=== PATIENT | male | born 1945 | race Caucasian/White ===

== ENCOUNTER 2020-03-04 14:04 | Outpatient (CLI) | payer BC, MEDICARE, SELFPAY ==
--- NOTE | ~2020-03-04 | CT_ITS ---
EXAMINATION: CT chest wo con DATE: 03/04/2020 14:35 INDICATION: Six-month follow-up TECHNIQUE: Computed tomography (CT) of the chest was performed without intravenous contrast. The dose -length product was 249.39 mGy-cm. Automated exposure control and iterative reconstruction technique were employed. COMPARISON: CT dated 07/29/2019 FINDINGS: Chronic elevation of the left diaphragm. No thoracic lymphadenopathy. No significant pleura l or pericardial effusion. There is left lower lobe atelectasis. The pleural-based densities in the l eft apical region and the right upper lobe are not visualized, likely resolution of atelectasis. Calc ified granuloma right middle lobe. There are scattered calcified granulomas in the lung parenchyma an d spleen. IMPRESSION: 1. Chronic elevation of the left hemidiaphragm, suspicious for phrenic nerve paralysis. 2: Left lower lobe atelectasis. Reviewed, dictated and finalized at location A. IMPRESSION: 1. Chronic elevation of the left hemidiaphragm, suspicious for phrenic nerve pa ralysis. 2: Left lower lobe atelectasis.
== END 2020-03-04 14:05 | disposition home or self-care (01) ==
PROVIDERS: PCP Family Medicine; Visit Provider Family Medicine
DX: R91.8 Other nonspecific abnormal finding of lung field (principal); J98.11 Atelectasis
CPT/HCPCS: 71250

== ENCOUNTER 2021-05-26 12:57 | Emergency (ER) | payer BC, MEDICARE, SELFPAY ==
--- NOTE | ~2021-05-26 | XR_ITS ---
XR chest 1V portable 05/26/2021 13:52 Indication: Dizziness Procedure: AP portable chest Comparison: Comparison to multiple prior studies sequentially, with oldest reviewed study dated 06/2015. Findings: Chronic elevation of the left diaphragm. Left basilar airspace disease. Moderate gastric di stention. No significant pleural effusion. No edema or pneumothorax. Impression: 1: Left basilar airspace disease may represent atelectasis or pneumonia. 2: Chronic elevation of the left diaphragm, suspicious for phrenic nerve paralysis. Reviewed, dictated and finalized at location A. Impression: 1: Left basilar airspace disease may represent atelectasis or pneumonia. 2: Chronic elevation of the left diaphragm, suspicious for phrenic nerve paral ysis.
[2021-05-26 13:04] VITALS: BP 158/73; PULSE 66; RESP 17; TEMP 36.2; O2SAT 100
--- NOTE | 2021-05-26 13:43 | ECG_ITS ---
Measurements Intervals [place] Rate: 64 P: 56 ME: 157 QRS: 47 QRSD: 94 T: 42 QT: 396 QTc: 411 Interpretive Statements SINUS RHYTHM INCOMPLETE RIGHT BUNDLE BRANCH BLOCK BASELINE ARTIFACT- II, III, AVR, AVF, V3-V6 BORDERLINE ECG Electronically Signed On 05-26-2021 15:37:10 CDT by Akash Yang D.O.
[2021-05-26 13:57] LABS: Basophils Percent Auto 0.6 % (0.2-1.2); Eosinophils Absolute Auto 0.2 K/mm3 (0-0.3); Eosinophils Percent Auto 4.1 % (0-4.4); Hematocrit 44.8 % (42.0-52.0); Hemoglobin 15.4 g/dL (14.0-18.0); Immature Granulocyte Absolute 0.01 K/mm3 (0.00-0.031); Immature Granulocyte Percent A 0.2 % (0-0.5); Lymphocytes Absolute Auto 1.31 K/mm3 (0.9-3.2); Lymphocytes Percent Auto 24.5 % (18.3-44.2); Mean Corpuscular HGB Conc 34.4 g/dl (32-36); Mean Corpuscular Hemoglobin 30.1 pg (26-34); Mean Corpuscular Volume 87.7 fl (80-100); Mean Platelet Volume 9.8 fl (7.4-10.4); Monocytes Absolute Auto 0.4 K/mm3 (0.1-0.6); Monocytes Percent Auto 7.7 % (2.6-8.5); Neutrophils Absolute Auto 3.4 K/mm3 (1.3-6.7); Neutrophils Percent Auto 62.9 % (45.5-73.1); Platelet Count Result 167 k/mm3 (150-375); Red Blood Count 5.11 M/mm3 (4.6-6.20); Red Cell Distribution Width 12.1 % (11.5-14.5); White Blood Count 5.4 K/mm3 (4.5-10.0)
[2021-05-26 13:59] VITALS: BP 134/78; PULSE 68; RESP 12; TEMP 37.1; O2SAT 99
[2021-05-26 14:05] LABS: Glucose Point of Care 91 mg/dl (65-105)
[2021-05-26] MEDS: MECLIZINE HCL 25 MG TABLET PO (14:05)
[2021-05-26] MEDS: SODIUM CHLORIDE 0.9% IV 1,000 ML 999 ML IV CONT (14:05)
[2021-05-26 14:08] LABS: Anion Gap 11 mmol/L (8-16); Blood Urea Nitrogen 17 mg/dL (9-20); Calcium 9.7 mg/dL (8.4-10.2); Carbon Dioxide 23 mmol/L (22-30); Chloride 104 mmol/L (98-107); Estimated CRCL calculation 65 ml/min; Estimated Glomerular Filt Rate > 60; Glucose 105 mg/dL (65-110); Potassium 4.1 mmol/L (3.4-5.0); Sodium 138 mmol/L (137-145)
[2021-05-26 15:00] VITALS: BP 140/77; PULSE 57; RESP 14; O2SAT 99
--- NOTE | 2021-05-26 15:19 | ED.DIZZY ---
HPI - Dizziness General Chief Complaint: Dizziness Stated Complaint: feel off balance Time Seen by Provider: 05/26/21 13:16 History of Present Illness HPI Narrative: Patient is a 75-year-old male who presents the ER with dizziness. Reports he woke up with this dizziness yesterday and had improved today. Then he was at lunch and it worsened. Makes him feel off balance. This happens to him about once a year. No previous history of CVA. Denies nausea/vomiting/sweats. No upper or lower extremity weakness. No numbness or tingling. No additional concerns. Has not tried any medications. Symptoms are better if he sits still. Related Data Allergies Allergy/AdvReac Type Severity Reaction Status Date / Time Penicillins Allergy Unknown Unknown Verified 05/26/21 13:07 Review of Systems Review of Systems: All systems reviewed & are unremarkable except as noted in HPI and below Constitutional: Constitutional: Denies chills, Denies fever(s) and Denies weakness ENT: Reports dizziness, Denies nasal congestion and Denies sore throat Gastrointestinal: Gastrointestinal: Denies abdominal pain, Denies nausea and Denies vomiting Neurologic: Reports dizziness, Denies syncope, Denies headache(s), Denies focal weakness and Denies numbness PMFSH Past Medical History Medical History Erectile dysfunction History of malignant neoplasm of tonsil History of radiation therapy History of throat cancer Right anterior shoulder pain Family History Family History Father Family history of coronary artery disease Mother Family history of coronary artery disease Sibling Family history of coronary artery disease Other Family history of cardiovascular disease Family history of malignant neoplasm Hypertension Social History Social History (Updated 10/26/20 @ 14:55 by Vanesa Smith) Smoking status: Never smoker Alcohol intake: never Substance use: never Substance use type: does not use Gender identity (if verbalized by the patient): Male Exam Narrative: GENERAL: Well-appearing, well-nourished, and in no acute distress. HEAD: Normocephalic, atraumatic. EYES: PERRL and EOMI. CHEST: Clear to auscultation. No respiratory distress. HEART: Regular rate and rhythm. Normal peripheral pulses. ABDOMEN: Soft, nontender, nondistended. EXTREMITIES: Normal range of motion. No edema. SKIN: Warm, dry, no rash. NEURO: No focal deficits. Cranial nerves II through XII intact. Ambulates without any issues. No upper or lower extremity drift. Normal finger-nose testing. Alert and oriented x3. PSYCH: Normal mood and affect. Course Course Emergency Course: Patient feels better with meclizine and fluids. Discharge home with supportive care. Vital Signs Vital signs: Vital Signs Temperature 97.2 F L 05/26/21 13:04 Pulse Rate 66 05/26/21 13:04 Respiratory Rate 17 05/26/21 13:04 Blood Pressure 158/73 H 05/26/21 13:04 Pulse Oximetry 100 05/26/21 13:04 Temperature 98.8 F 05/26/21 13:59 Pulse Rate 68 05/26/21 13:59 Respiratory Rate 12 05/26/21 13:59 Blood Pressure 134/78 05/26/21 13:59 Pulse Oximetry 99 05/26/21 13:59 MDM - Dizziness Lab Data Result diagrams: 05/26/21 13:51 05/26/21 13:51 Labs: Lab Results 05/26/21 05/26/21 05/26/21 Range/Units 13:51 13:51 14:03 WBC 5.4 (4.5-10.0) K/mm3 RBC 5.11 (4.6-6.20) M/mm3 Hgb 15.4 (14.0-18.0) g/dL Hct 44.8 (42.0-52.0) % MCV 87.7 (80-100) fl MCH 30.1 (26-34) pg MCHC 34.4 (32-36) g/dl RDW 12.1 (11.5-14.5) % Plt Count 167 (150-375) k/mm3 MPV 9.8 (7.4-10.4) fl Immature Gran % (Auto) 0.2 (0-0.5) % Neut % (Auto) 62.9 (45.5-73.1) % Lymph % (Auto) 24.5 (18.3-44.2) % [place] % (Auto) 7.7 (2.6-8.5) % Eos % (Auto) 4.1 (0-4.4) % Baso % (Auto) 0.6
[2021-05-26 16:00] VITALS: BP 151/74; PULSE 61; RESP 12; O2SAT 99
== END 2021-05-26 16:02 | disposition home or self-care (01) ==
PROVIDERS: Emergency Provider Emergency Medicine; PCP Family Medicine
DX: R42 Dizziness and giddiness (principal); I45.10 Unspecified right bundle-branch block; R91.8 Other nonspecific abnormal finding of lung field; Z92.3 Personal history of irradiation; Z85.818 Personal history of malignant neoplasm of other sites of lip, oral cavity, and pharynx
CPT/HCPCS: 36415; 71045; 80048; 82948; 85025; 93005; 96360; 99284; A9270; J7030

== ENCOUNTER 2022-01-16 17:48 | Emergency (ER) | payer BC, MEDICARE, SELFPAY ==
[2022-01-16 17:50] VITALS: BP 141/87; PULSE 74; RESP 18; TEMP 36.2; O2SAT 100
[2022-01-16 18:11] LABS: Basophils Percent Auto 0.4 % (0.2-1.2); Eosinophils Absolute Auto 0.2 K/mm3 (0-0.3); Eosinophils Percent Auto 2.1 % (0-4.4); Hematocrit 54.3 % (42.0-52.0); Hemoglobin 18.1 g/dL (14.0-18.0); Immature Granulocyte Absolute 0.03 K/mm3 (0.00-0.031); Immature Granulocyte Percent A 0.4 % (0-0.5); Lymphocytes Absolute Auto 0.72 K/mm3 (0.9-3.2); Lymphocytes Percent Auto 9.9 % (18.3-44.2); Mean Corpuscular HGB Conc 33.3 g/dl (32-36); Mean Corpuscular Hemoglobin 30.3 pg (26-34); Mean Corpuscular Volume 90.8 fl (80-100); Mean Platelet Volume 9.4 fl (7.4-10.4); Monocytes Absolute Auto 0.7 K/mm3 (0.1-0.6); Monocytes Percent Auto 9.2 % (2.6-8.5); Neutrophils Absolute Auto 5.7 K/mm3 (1.3-6.7); Platelet Count Result 180 k/mm3 (150-375); Red Blood Count 5.98 M/mm3 (4.6-6.20); Red Cell Distribution Width 12.8 % (11.5-14.5); White Blood Count 7.3 K/mm3 (4.5-10.0)
[2022-01-16 18:22] LABS: Alanine Aminotransferase 31 U/L (4-50); Albumin Level 4.8 g/dL (3.5-5.1); Alkaline Phosphatase 126 U/L (38-126); Anion Gap 9 mmol/L (8-16); Aspartate Amino Transferase 42 U/L (17-59); Bilirubin,Total 0.9 mg/dL (0.2-1.3); Blood Urea Nitrogen 17 mg/dL (9-20); Calcium 8.7 mg/dL (8.4-10.2); Carbon Dioxide 20 mmol/L (22-30); Chloride 106 mmol/L (98-107); Estimated CRCL calculation 54 ml/min; Estimated Glomerular Filt Rate 59; Glucose 119 mg/dL (65-110); Lipase 233 U/L (23-300); Potassium 4.6 mmol/L (3.4-5.0); Sodium 135 mmol/L (137-145)
--- NOTE | 2022-01-16 18:26 | ED.NAVMDI ---
HPI - Nausea/Vomiting/Diarrhea General Chief complaint: Nausea/Vomiting/Diarrhea Stated complaint: Diarrhea, vomiting, nausea Time Seen by Provider: 01/16/22 18:05 Source: patient Mode of arrival: ambulatory Limitations: no limitations History of Present Illness HPI Narrative: 76-year-old male presents today with complaints of diarrhea that started Saturday night. Patient states at 1 point he was having diarrhea episodes every 10 minutes. Patient states it has slowed down today. Patient unable to eat food but able to keep down fluids. Patient states he was nauseated with the Ensure that he drank today. Patient denies abdominal pain, fever, chills, cough, sore throat, or sick contacts. Patient does endorse slight nausea at this point and body aches with sweats at times. Related Data Allergies Allergy/AdvReac Type Severity Reaction Status Date / Time Penicillins Allergy Unknown Unknown Verified 01/16/22 17:51 Review of Systems Review of Systems: CONSTITUTIONAL: Denies fever, chills, or sweats. EYES: Denies visual changes, redness, or discharge. ENT: Denies rhinorrhea, congestion, sore throat, or otalgia. CARDIOVASCULAR: Denies chest pain, palpitations, or edema. RESPIRATORY: Denies cough or dyspnea. GASTROINTESTINAL: Diarrhea. Denies abdominal pain, nausea, vomiting. GENITOURINARY: Denies dysuria or hematuria. SKIN: Denies rash or itching. MUSCULOSKELETAL: Denies back pain, joint pain, or myalgia. NEUROLOGIC: Denies headache, numbness, dizziness, or weakness. PSYCHIATRIC: Denies anxiety or depression. [facility] Past Medical History Medical History Erectile dysfunction History of malignant neoplasm of tonsil History of radiation therapy History of throat cancer Overweight Right anterior shoulder pain Family History Family History Father Family history of coronary artery disease Mother Family history of coronary artery disease Sibling Family history of coronary artery disease Other Family history of cardiovascular disease Family history of malignant neoplasm Hypertension Social History Social History Smoking status: Never smoker Second hand tobacco smoke exposure: No Alcohol intake: never Substance use: never Substance use type: does not use Gender identity (if verbalized by the patient): Male Sexual Orientation (if Verbalized by the Patient): Straight or Heterosexual Exam Const: General: cooperative, healthy appearing, no acute distress and well developed HENMT: Head: normal to inspection Ears: hearing grossly normal bilaterally General nose exam: Normal external nose present Mouth: Yes moist mucous membranes Eyes: General: appearance normal, both eyes and all related structures Chest: Chest palpation & inspection: normal inspection of the chest Resp: Effort & Inspection: normal respiratory effort and able to speak in complete sentences Auscultation: clear to auscultation bilaterally Cardio: Rate: regular rate Rhythm: regular rhythm GI: Inspection: normal to inspection GI Palp: No abdominal tenderness Auscultation: normal bowel sounds Skin: General skin exam: normal color Neuro: General: patient oriented x3 Extrem: General: normal to inspection Course Course Emergency Course: All results reviewed with patient. Patient feeling much improved with IV fluids and ketorolac. Plan discharge home. Push fluids. Son at bedside and aware of plan. All in agreement with plan of care and aware to return with any new or worsening symptoms. Vital Signs Vital signs: Vital Signs Temperature 36.2 C L 01/16/22 17:50 Pulse Rate 74 01/16/22 17:50 Respiratory Rate 18 01/16/22 17:50 Blood Pressure 141/87 H 01/16/22 17:50 Pulse Oximetry 100 01/16/22 17:50 Temperature 36.2 C L 01/16/22 17:50 Pulse Rate 70 03
[2022-01-16] MEDS: LACTATED RINGERS 1,000 ML 999 ML IV CONT (18:35)
[2022-01-16] MEDS: ONDANSETRON INJ 4 MG/2 ML VIAL IV PUSH (18:35)
[2022-01-16 19:05] LABS: Add Urine Microscopic? YES; Appearance Urine Cloudy (Clear); Bacteria Urine Trace /hpf; Bilirubin Urine Negative (Negative); Blood Urine Negative (Negative); Color Urine Amber (Yellow); Glucose Urine UA Negative (Negative); Ketones Urine Negative (Negative); Leukocyte Esterase Ur Negative LEU/UL (Negative); Mucus Urine Moderate /lpf; Nitrate Urine Negative (Negative); Protein Urine 1+ mg/dL (Negative); RBC Urine 0-2 /hpf (0-2); Specific Grav Ur 1.027 (1.001-1.035); Squamous Epithelial Cell Urine Rare /hpf (Few); Urobilinogen Urine Negative mg/dL (<2.0); WBC Urine 0-3 /hpf
[2022-01-16 19:24] VITALS: BP 155/94; PULSE 78; RESP 18; O2SAT 98
--- NOTE | 2022-01-16 19:27 | PC.NURSE ---
Assuming care of pt.
[2022-01-16] MEDS: KETOROLAC 15 MG/ML VIAL (*BKC) IV PUSH (19:37)
[2022-01-16] MEDS: ACETAMINOPHEN 325 MG TABLET 650 MG PO (20:31)
[2022-01-16 20:32] VITALS: BP 107/90; PULSE 70; RESP 18; O2SAT 100
== END 2022-01-16 20:34 | disposition home or self-care (01) ==
PROVIDERS: Emergency Medicine; Emergency Provider Nurse Practitioner Family; PCP Family Medicine
DX: K52.9 Noninfective gastroenteritis and colitis, unspecified (principal); Z85.818 Personal history of malignant neoplasm of other sites of lip, oral cavity, and pharynx; Z92.3 Personal history of irradiation; E66.3 Overweight; Z68.26 Body mass index [BMI] 26.0-26.9, adult
CPT/HCPCS: 36415; 80053; 81001; 83690; 85025; 96361; 96374; 96375; 99284; A9270; J1885; J2405; J7120

== ENCOUNTER 2022-11-02 11:10 | Outpatient (CLI) | payer MEDICARE, BC, SELFPAY ==
--- NOTE | ~2022-11-02 | XR_ITS ---
XR ribs BI 3V w CXR 2V DATE: 11/02/2022 11:59 INDICATION: Fall. Rib injury, pain TECHNIQUE: PA and lateral views. 3 views of the right ribs. 3 views of the left ribs. COMPARISON: 05/26/2021 AP chest FINDINGS: There is chronic moderate elevation left leaf of the diaphragm. Heart size is within normal range. No hilar or mediastinal enlargement. Azygos lobe, normal variant. No pulmonary infiltrate or consolidation, pleural effusion or pulmonary vascular congestion or pneumothorax is detected. Osteopenia. No recent left rib fracture is detected. IMPRESSION: No recent rib fractures detected Chronic moderate elevation left diaphragm No active cardiopulmonary disease Reviewed, dictated and finalized at location B. STITCH COAT JOINER
--- NOTE | ~2022-11-02 | XR_ITS ---
XR shoulder LT min 2V DATE: 11/02/2022 11:59 INDICATION: Fall. Left shoulder injury, pain TECHNIQUE: 4 views COMPARISON: None FINDINGS: There is calcification at the acromioclavicular joint. No fracture or dislocation, perioste al reaction or bone destruction. No significant abnormal left shoulder calcification is noted. IMPRESSION: No significant abnormality Reviewed, dictated and finalized at location B. SELOR SUPERVISOR IMPRESSION: No significant abnormality
== END 2022-11-02 11:11 | disposition home or self-care (01) ==
PROVIDERS: PCP Family Medicine; Visit Provider Physician Assistant
DX: M25.512 Pain in left shoulder (principal); R07.81 Pleurodynia; Z91.81 History of falling
CPT/HCPCS: 71046; 71110; 73030

== ENCOUNTER → 2023-08-02 08:19 | Outpatient (CLI) | payer BC, MEDICARE, SELFPAY ==
--- NOTE | ~2023-08-02 | XR_ITS ---
XR chest 2V DATE: 08/02/2023 08:34 INDICATION: Cough TECHNIQUE: 2 views COMPARISON: None FINDINGS: There is prominent gaseous distention of the stomach and chronic elevation of the left diap hragm. Heart size is normal. No hilar or mediastinal enlargement. Azygos lobe, normal variant. No pulmonary infiltrate or consolidation, pleural effusion or pulmonary vascular congestion or pneumothorax. IMPRESSION: No active cardiopulmonary disease or significant change since 11/02/2022 Reviewed, dictated and finalized at location B. IMPRESSION: No active cardiopulmonary disease or significant change since 023
== END ==
PROVIDERS: PCP Physician Assistant; Visit Provider Physician Assistant
DX: R05.9 Cough, unspecified (principal)
CPT/HCPCS: 71046

== ENCOUNTER 2023-12-12 09:20 | Outpatient (CLI) | payer BC, MEDICARE, SELFPAY ==
--- NOTE | ~2023-12-12 | US_ITS ---
EXAMINATION: US carotid duplex BI DATE: 12/12/2023 09:45 INDICATION: Radiation to head and neck region. Throat cancer. TECHNIQUE: Grayscale, color Doppler, and pulsed Doppler images of the cervical carotid arteries were obtained. The degree of vessel stenosis is placed in one of the following categories: normal, <50%, 5 0-69%, >=70% but less than near-occlusion, near-occlusion, or total occlusion. Note that percent sten osis relative to normal distal artery lumen diameter is indirectly measured from velocity measurement s as described by Blu, et al. Radiology 2003; 229:340-346. COMPARISON: Ultrasound 11/27/2016 FINDINGS: RIGHT: The right common carotid artery (CCA) peak systolic velocity (PSV) is 83 cm/s. The right internal car otid artery (ICA) PSV is 95 cm/s. The right ICA end-diastolic velocity (EDV) is 30 cm/s. The right IC A/CCA PSV ratio is 1.1. Grayscale and color Doppler images yield an estimate of <50% diameter reducti on from plaque in the ICA. There is antegrade flow in the right vertebral artery. LEFT: The left CCA PSV is 116 cm/s. The left ICA PSV is 127 cm/s. The left ICA EDV is 46 cm/s. The left ICA /CCA PSV ratio is 1.1. Grayscale and color Doppler images yield an estimate of <50% diameter reductio n from plaque in the ICA. There is antegrade flow in the left vertebral artery. IMPRESSION: 1. <50% stenosis in the right internal carotid artery. 2. <50% stenosis in the left internal carotid artery. Reviewed, dictated and finalized at location A. RANCE SENIOR MANAGER
== END 2023-12-12 09:21 | disposition home or self-care (01) ==
LOC: ANHIMG 09:22
PROVIDERS: PCP Family Medicine
DX: I67.89 Other cerebrovascular disease (principal); Z92.3 Personal history of irradiation; I65.23 Occlusion and stenosis of bilateral carotid arteries
CPT/HCPCS: 93880

== ENCOUNTER 2024-05-15 10:07 | Outpatient (CLI) | payer BC, MEDICARE, SELFPAY ==
--- NOTE | 2024-05-26 16:08 | WPDHOLTEREM ---
Holter/Event Monitor Holter/Event Monitor Date of procedure: 05/15/24 Holter/Event Procedure: 48 Hr Holter Monitor Indications: Palpitations Conclusion: 1. 48 hour holter monitor on 05/15/24. 2. Predominant rhythm is sinus rhythm. HR range 51-146 bpm; average HR 72 bpm. 3. There are 5,011 premature supraventricular complexes, 117 supraventricular couplets, 96 supraventricular bigeminy and 3 supraventricular trigeminy. There are 5 episodes of atrial tachycardia, fastest at 145 bpm and longest lasting 4 beats. 4. There are 1,405 premature ventricular complexes, 3 ventricular couplets, 2 ventricular triplets. No ventricular tachycardia. 5. No sinoatrial or atrioventricular blocks. No significant pauses greater than 2 seconds. 6. No symptoms available for correlation.
== END 2024-05-15 10:08 | disposition home or self-care (01) ==
LOC: ANHCARD 10:08
PROVIDERS: PCP Family Medicine; Visit Provider Physician Assistant
DX: R00.2 Palpitations (principal); R07.9 Chest pain, unspecified
CPT/HCPCS: 93225; 93226

== ENCOUNTER 2024-05-25 07:35 | Outpatient (CLI) | payer BC, MEDICARE, SELFPAY | END 2024-05-25 07:36 | disposition home or self-care (01) | LOC: ANHAUDIO 07:37 | PROVIDERS: PCP Family Medicine; Visit Provider Physician Assistant | DX: H90.3 Sensorineural hearing loss, bilateral (principal); H93.13 Tinnitus, bilateral; H61.23 Impacted cerumen, bilateral | CPT/HCPCS: 92557; 92567 ==

== ENCOUNTER 2024-06-15 12:25 | Emergency (ER) | payer BC, MEDICARE, SELFPAY ==
--- NOTE | ~2024-06-15 | CT_ITS ---
EXAMINATION: CT abdomen pelvis w con DATE: 06/15/2024 14:51 INDICATION: Right lower abdominal pain TECHNIQUE: Computed tomography (CT) of the abdomen and pelvis was performed with 100 mL Omnipaque-350 intravenous contrast. Automated exposure control and iterative reconstruction technique were employe d. The dose-length product was 488.44 mGy-cm. COMPARISON: None FINDINGS: Basilar compressive atelectasis along the elevated left hemidiaphragm. Additional mild discoid atelec tasis in the left lower lobe. Small calcified nodule at the lingula and calcified splenic nodule cons istent with old granulomatous disease. Heart size is normal. Atherosclerotic coronary artery calcific ation. No pericardial or pleural effusion. Cholecystectomy clips at the gallbladder fossa. Liver, braden creas and bilateral adrenal glands are normal. There are regions of cortical scarring in the right ki dney. Small bilateral nonenhancing renal cysts the largest on the left measuring 8 mm in maximal diam eter. Gas and fluid scattered throughout nondilated loops of small bowel which could be seen with ent eritis. Normal appendix. Moderate sigmoid diverticulosis without no adjacent inflammatory change to s uggest diverticulitis. Bladder is normal. Prostatomegaly measuring 5.3 x 4.0 cm. Small fat-containing left inguinal hernia. No free intraperitoneal gas or fluid. No pathologically enlarged abdominal or pelvic lymphadenopathy. Severe lumbar spondylosis. IMPRESSION: 1. Resting fluid scattered throughout nonobstructed small bowel which is nonspecific but which could be seen with enteritis or ileus. No other acute intra-abdominal/pelvic process. Specifically the appe ndix is normal. Reviewed, dictated and finalized at location A. IMPRESSION: 1. Resting fluid scattered throughout nonobstructed small bowel which is nonspe cific but which could be seen with enteritis or ileus. No other acute intra-abd ominal/pelvic process. Specifically the appendix is normal.
[2024-06-15 12:45] VITALS: BP 117/93; PULSE 63; RESP 18; TEMP 36.4; O2SAT 97
--- NOTE | 2024-06-15 13:51 | ED.ABDPAIN ---
HPI - Abdominal Pain General Chief Complaint: Abdominal Pain <ES Huitron Last Filed: 06/15/24 13:56> Stated Complaint: abdominal pain <ES Huitron Last Filed: 06/15/24 13:56> Time Seen by Provider: 06/15/24 13:48 <ES Huitron Last Filed: 06/15/24 13:56> Focused HPI: Patient is a 78 y/o male, with PMH of throat CA, who presents to the ED with c/o R lower abdominal pain. Patient reports pain began yesterday and has been intermittent since then. Describes it as sharp stabbing electric type pains. Seems to be worse with movement. Has tried gas-x w/o relief. Has not taken anything else for pain. States pain feels similar to when he had gallbladder issues, though has since had a cholecystectomy. Denies N/V/D, constipation, dysuria, hematuria, fevers. GENERAL: Well-appearing, well-nourished, and in no acute distress. HEAD: Normocephalic, atraumatic. CHEST: Clear to auscultation. ?No respiratory distress. HEART: Regular rate and rhythm.? ABD: Mild TTP throughout R lower lateral abdomen. Normoactive BS. NEURO: ?Alert and oriented x3. Patient screened in triage and initial orders placed.? ?Additional care and disposition to be based upon?diagnostic testing and treatment. <ES Huitron Last Filed: 06/15/24 13:56> Source: patient <ES Huitron Last Filed: 06/15/24 13:56> Mode of arrival: ambulatory <SE Huitron Last Filed: 06/15/24 13:56> Limitations: no limitations <ES Huitron Last Filed: 06/15/24 13:56> History of Present Illness HPI narrative: I agree with the assessment above. <Katty Escudero APRN - Last Filed: 06/15/24 16:29> Related Data Allergies/Adverse Reactions: Allergies Allergy/AdvReac Type Severity Reaction Status Date / Time Penicillins Allergy Unknown Rash Verified 04/27/24 10:46 <Keely Wilde PA-C - Last Filed: 06/15/24 13:56> Review of Systems Review of Systems: All systems reviewed & are unremarkable except as noted in HPI and below <Katty Escudero APRN - Last Filed: 06/15/24 16:29> PMFSH Past Medical History Medical History: Medical History Erectile dysfunction History of malignant neoplasm of tonsil History of radiation therapy History of throat cancer Overweight Right anterior shoulder pain <Keely Wilde PA-C - Last Filed: 06/15/24 13:56> Family History Family History: Family History Father Family history of coronary artery disease Mother Family history of coronary artery disease Sibling Family history of coronary artery disease Other Family history of cardiovascular disease Family history of malignant neoplasm Hypertension <Keely Wilde PA-C - Last Filed: 06/15/24 13:56> Social History Social History: Social History Smoking status: Never smoker Second hand tobacco smoke exposure: No Alcohol intake: never Substance use: never Substance use type: does not use Living arrangements: with family Occupation/Education: retired Gender identity (if verbalized by the patient): Male Sexual Orientation (if Verbalized by the Patient): Straight or Heterosexual <Keely Wilde PA-C - Last Filed: 06/15/24 13:56> Exam Narrative: GENERAL: Well-appearing, well-nourished and in no acute distress. NECK: Supple, normal range of motion, no JVD. No lymphadenopathy. CARDIAC: Regular rate (bradycardic intermittently) and rhythm without murmurs, rubs or gallops. RESPIRATORY: Clear to auscultation bilaterally. No wheezes, rales or rhonchi. ABDOMEN: Soft, nontender, normoactive bowel sounds throughout, no guarding, no rebound. No masses appreciated. EXTREMITIES: Normal range of motion, no swelling,
[2024-06-15 14:00] LABS: Basophils Absolute Auto 0.1 K/mm3 (0.0-0.1); Basophils Percent Auto 0.8 % (0.2-1.2); Eosinophils Absolute Auto 0.2 K/mm3 (0-0.3); Eosinophils Percent Auto 3.4 % (0-4.4); Hematocrit 45.6 % (42.0-52.0); Immature Granulocyte Absolute 0.02 K/mm3 (0.00-0.031); Immature Granulocyte Percent A 0.3 % (0-0.5); Lymphocytes Absolute Auto 1.32 K/mm3 (0.9-3.2); Lymphocytes Percent Auto 22.1 % (18.3-44.2); Mean Corpuscular HGB Conc 35.1 g/dl (32-36); Mean Corpuscular Hemoglobin 30.9 pg (26-34); Mean Platelet Volume 9.5 fl (7.4-10.4); Monocytes Absolute Auto 0.4 K/mm3 (0.1-0.6); Monocytes Percent Auto 6.4 % (2.6-8.5); Platelet Count Result 160 k/mm3 (150-375); Red Blood Count 5.18 M/mm3 (4.6-6.20); Red Cell Distribution Width 12.3 % (11.5-14.5)
[2024-06-15 14:31] LABS: Alanine Aminotransferase 19 U/L (6-50); Albumin Level 4.1 g/dL (3.5-5.1); Alkaline Phosphatase 91 U/L (38-126); Anion Gap 7 mmol/L (4-12); Aspartate Amino Transferase 28 U/L (17-59); Bilirubin,Total 0.6 mg/dL (0.2-1.3); Blood Urea Nitrogen 19 mg/dL (9-20); Calcium 9.3 mg/dL (8.4-10.2); Carbon Dioxide 27 mmol/L (22-30); Chloride 104 mmol/L (98-107); Estimated CRCL calculation 62 ml/min; Estimated Glomerular Filt Rate > 60; Glucose 77 mg/dL (65-110); Lipase 112 U/L (23-300); Potassium 4.4 mmol/L (3.4-5.0); Sodium 138 mmol/L (137-145)
[2024-06-15 14:42] LABS: Add Urine Microscopic? NO; Appearance Urine Clear (Clear); Bilirubin Urine Negative (Negative); Blood Urine Negative (Negative); Color Urine Yellow (Yellow); Glucose Urine UA Negative (Negative); Ketones Urine Negative (Negative); Leukocyte Esterase Ur Negative LEU/UL (Negative); Nitrate Urine Negative (Negative); Protein Urine Negative (Negative); Specific Grav Ur 1.009 (1.001-1.035); Urobilinogen Urine 0.2 mg/dL (<2.0)
[2024-06-15 15:18] VITALS: BP 159/95; PULSE 63; RESP 18; O2SAT 100
[2024-06-15 16:31] VITALS: BP 165/87; PULSE 61; RESP 18; TEMP 36.6; O2SAT 96
[2024-06-15 16:38] VITALS: BP 165/87; PULSE 63; RESP 16; TEMP 36.6; O2SAT 97
== END 2024-06-15 16:39 | disposition home or self-care (01) ==
PROVIDERS: Physician Assistant; Emergency Provider Registered Nurse; PCP Family Medicine
DX: R07.89 Other chest pain (principal); R10.31 Right lower quadrant pain
CPT/HCPCS: 36415; 74177; 80053; 81003; 83690; 85025; 99284; Q9967

== ENCOUNTER 2024-07-22 08:00 | Outpatient (CLI) | payer BC, MEDICARE, SELFPAY ==
--- NOTE | ~2024-07-22 | NM_ITS ---
EXAMINATION: NM stress w perf spect multi DATE: 07/22/2024 11:21 INDICATION: Chest pain TECHNIQUE: Rest images were obtained following intravenous administration of 10.0 mCi Tc99m tetrofosm in ([employer]). The patient performed an exercise activity. At peak exercise, 29.6 mCi Tc99m tetrofosmi n ([employer]) was administered intravenously, and stress images were obtained. Data was reconstructed i nto short axis and horizontal and vertical long axis SPECT images. Gated SPECT images were also obtai lamberto. COMPARISON: None. FINDINGS: There is normal left ventricular perfusion without definite evidence of reversible or fixed perfusion abnormality to suggest ischemia or infarction. There is normal left ventricular chamber size, wall motion and ejection fraction. Left ventricular ejection fraction measures >70%. IMPRESSION: 1. Normal myocardial perfusion at rest and during stress. 2. Left ventricular ejection fraction measuring >70%. Reviewed, dictated and finalized at location A.
--- NOTE | 2024-07-22 08:12 | ECHO_ITS ---
Patient Info Name: Alek Tapia Age: 78 years : 1945 Gender: Male Ht: 73 in Wt: 185 lbs BSA: 2.08 m2 HR: 62 bpm BP: 117 / 78 mmHg Heart Rhythm: Sinus Rhythm Technical Quality: Good Exam Date: 07/22/2024 8:55 AM Exam Location: Echo Lab Patient Status: Outpatient Admit Date: 07/22/2024 Staff Ordering Physician: Akash Yang DO Surveillance Supervisor: Merly Strong RDCS Attending Provider: Akash Yang DO Referring Physician: Trey WATSON; Exam Type: CA echo doppler color flow Study Info Indications - OTHER SUPRAVENTRICULAR TACHYCARDIA Complete two-dimensional, color flow and Doppler transthoracic echocardiogram is performed. Summary 1. Complete two-dimensional, color flow and Doppler transthoracic echocardiogram is performed. 2. Left ventricular chamber dimension is normal. 3. Left ventricular systolic function is normal, estimated at 60-65%. 4. The left ventricular diastolic function is grade I diastolic dysfunction. 5. E/e' 10 is mildly elevated. 6. There is mild aortic valve sclerosis. 7. There is mild tricuspid valve regurgitation. 8. No pulmonary hypertension, estimated pulmonary arterial systolic pressure is 31 mmHg. Left Ventricle E/e' 10 is mildly elevated. Left ventricular chamber dimension is normal. Left ventricular systolic function is normal, estimated at 60-65%. The left ventricular diastolic function is grade I diastolic dysfunction. Right Ventricle Right ventricular systolic function is normal and with normal TAPSE 3.2 cm. Right ventricular chamber dimension is normal. Left Atria Left atrial chamber dimension is normal. Right Atria Right atrial chamber dimension is normal. Aortic Valve The aortic valve is trileaflet. There is mild aortic valve sclerosis. There is no aortic valve stenosis. There is no aortic valve regurgitation. Pulmonic Valve There is no pulmonic regurgitation. Mitral Valve There is no mitral valve stenosis. There is no mitral valve regurgitation. Tricuspid Valve There is mild tricuspid valve regurgitation. No pulmonary hypertension, estimated pulmonary arterial systolic pressure is 31 mmHg. Pericardium/Pleural There is no pericardial effusion. Inferior Vena Cava Normal inferior vena cava with >50% collapse upon inspiration consistent with normal right atrial pressure, 5 mmHg. Aorta The aortic root size at the sinus of Valsalva is normal. Left Ventricular Outflow Tract Name Value Normal LVOT 2D LVOT Diameter 2.0 cm LVOT Doppler LVOT Peak Gradient 3 mmHg LVOT Mean Gradient 2 mmHg LVOT VTI 19 cm LVOT VTI/AV VTI Ratio 0.8 LVOT Stroke Volume 61 ml LVOT CO 3.7 l/min LVOT CI 1.8 l/min/m2 Pulmonic Valve Name Value Normal PV Doppler PV Peak Gradient 5 mmHg
--- NOTE | 2024-07-22 08:12 | EST_ITS ---
Patient Info Name: Alek Tapia Age: 78 years : 1945 Gender: Male Ht: 73 in Wt: 185 lbs BSA: 2.08 m2 HR: 122 bpm BP: 144 / 80 mmHg Exam Date: 07/22/2024 10:13 AM Exam Location: Echo Lab Patient Status: Outpatient Admit Date: 07/22/2024 Staff Ordering Physician: Akash Yang DO Attending Provider: Akash Yang DO Exercise Technologist: Nan Benavides RDCS Exercise Physician: Akash Yang DO Exam Type: CA stress marilyn w NM Study Info A regadenoson stress test was performed. Summary 1. 1. Negative lexiscan stress test for ischemic ST changes by ECG criteria. 2. 2. Baseline hypertension. 3. 3. Nuclear scan to follow and will be reported separately. Please correlate with it. 4. 4. Patient informed of the above results. Protocol: Lexiscan Stress ECG Details Stage: REST Duration (min): 1 min : 10 sec HR (bpm): 59 SBP (mmHg): 144 DBP (mmHg): 80 Stage: REST Duration (min): 6 min : 59 sec HR (bpm): 64 SBP (mmHg): 144 DBP (mmHg): 80 Stage: STAGE 1 Duration (min): 1 min : 0 sec HR (bpm): 65 SBP (mmHg): 148 DBP (mmHg): 83 Stage: RECOVERY Duration (min): 1 min : 0 sec HR (bpm): 76 SBP (mmHg): 148 DBP (mmHg): 83 Stage: RECOVERY Duration (min): 2 min : 0 sec HR (bpm): 71 SBP (mmHg): 148 DBP (mmHg): 83 Stage: RECOVERY Duration (min): 3 min : 0 sec HR (bpm): 67 SBP (mmHg): 134 DBP (mmHg): 70 Stage: RECOVERY Duration (min): 3 min : 5 sec HR (bpm): 68 SBP (mmHg): 134 DBP (mmHg): 70 Rest HR: 64 bpm Peak HR: 76 bpm Rest Sys BP: 144 mmHg Peak Sys BP: 148 mmHg Max Pred HR: 143 bpm % Max Pred HR: 53 % Target HR: 122 bpm Max RPP: 11,248 bpm*mmHg Termination Reason: Completed protocol Cardiac Symptoms: Shortness of breath Total Time: 1 min : 0 sec Rest Cardoso BP: 80 mmHg Peak Cardoso BP: 83 mmHg Total Dose: 0.4 mg Resting ECG Sinus rhythm. Stress ECG No ST changes. Arrhythmias None. Report Signatures
== END 2024-07-22 08:01 | disposition home or self-care (01) ==
PROVIDERS: PCP Physician Assistant; Visit Provider Internal Medicine Cardiovascular Disease
DX: I47.19 Other supraventricular tachycardia (principal); I51.89 Other ill-defined heart diseases; I35.8 Other nonrheumatic aortic valve disorders; I36.1 Nonrheumatic tricuspid (valve) insufficiency
CPT/HCPCS: 78452; 93017; 93306; A9502; J2785

== ENCOUNTER 2024-09-22 10:09 | Emergency (ER) | payer BC, MEDICARE, SELFPAY ==
--- NOTE | 2024-09-22 10:19 | ED_ITS ---
HPI - URI/Sore Throat General Chief Complaint: Upper Respiratory Infection Stated Complaint: Sinus/Cough Time Seen by Provider: 09/22/24 10:35 Source: patient Mode of arrival: ambulatory Limitations: no limitations History of Present Illness HPI Narrative: Alek is a 78-year-old male patient presenting to the clinic today with complaints of sinus congestion and cough for the past week. He reports he was treated 4-6 weeks ago for sinus infection and given azithromycin and Tessalon Perles at that time. He states his symptoms have improved however they have come back. He is coughing up green phlegm and having a lot of sinus pressure. Denies any chest pain or shortness of breath. Denies any fever, chills, or body aches. MD elicited complaint: cough, nasal congestion and sinus pain Related Data Allergies Allergy/AdvReac Type Severity Reaction Status Date / Time Penicillins Allergy Unknown Rash Verified 09/22/24 10:37 Review of Systems Review of Systems: Pertinent positives per HPI. Patient denies any fever, chills, rash, headache, visual changes, dizziness, shortness of breath, chest pain, palpitations, nausea, vomiting, diarrhea, constipation, abdominal pain, or any urinary issues. [facility] Past Medical History Medical History Erectile dysfunction History of malignant neoplasm of tonsil History of radiation therapy History of throat cancer Overweight Right anterior shoulder pain Family History Family History Father Family history of coronary artery disease Mother Family history of coronary artery disease Sibling Family history of coronary artery disease Other Family history of cardiovascular disease Family history of malignant neoplasm Hypertension Social History Social History Smoking status: Never smoker Second hand tobacco smoke exposure: No Alcohol intake: never Substance use: never Substance use type: does not use Do You Feel Safe in your Home?: Yes Lack of Transportation: No Lack of Food: Never True Current Housing: I Have Housing Concerned About Future Housing: No Difficulty Paying Gas/Electric Bills: No Difficulty Paying for Meds: No Currently Unemployed: No Education: High School Diploma/GED Difficulty w/ Childcare or Family Care: No Living arrangements: with family Occupation/Education: retired Gender identity (if verbalized by the patient): Male Sexual Orientation (if Verbalized by the Patient): Straight or Heterosexual Comments At the time of my signature, I reviewed and agree with the nursing past medical, surgical, social, and family history. There is no relevant family history pertinent to the patient complaint. Exam Narrative: General: Well-developed, well nourished, in no apparent distress Head: Normocephalic, atraumatic Eyes: Pupils equally round and reactive to light bilaterally, EOM intact, sclera and conjunctive clear, no discharge, lids normal Ears: TMs intact and clear, ear canals clear, no drainage, grossly hearing normal. Nose: Nares patent, green nasal discharge, severe inflammation, maxillary sinus tenderness. Mouth: Oral pharynx without lesions or masses, good dentition, MMM. Postnasal drip Neck: Supple, trachea midline, no enlargement of anterior or posterior cervical nodes, no thyroid masses or goiter palpable. Cardio: Regular rate and rhythm, s1 and s2 normal, no murmur appreciated. Resp: Clear to auscultation bilaterally, no rhonchi, rales, wheezing or rubs Course Course Emergency Course: Portions of this record may have been created with voice recognition software. Level of Care: Express Care Visit Vital Signs Vital signs: Vital Signs Temperature 36.3 C L 09/22/24 10:21 Pulse Rate 73 09/22/24 10:21 Respiratory Rate 15 09/22/24 10:21 Blood Pressure 124/73 09/22/24 10:21 Pulse Oximetry 97 09/22/24 10:21 Oxygen Delivery Room Air 09/22/24 10:21 Temperature 36.3 C L 09/22/24 10:21 Pulse Rate 73 09/22/24 10:21 Respiratory Rate 15 09/22/24 10:21 Blood Pressure 124/73 09/22/24 10:21 Pulse Oximetry 97 09/22/24 10:21 Oxygen Delivery Room Air 09/22/24 10:21 Vital signs reviewed MDM - URI/Sore Throat MDM Narrative Medical decision making narrative: At the time of visit patient is resting comfortably on the exam table. Patient appears to be nontoxic. Plan: I suspect patient has acute bacterial rhinosinusitis. Prescription for doxycycline, prednisone, and Tessalon Perles was sent to the pharmacy. Supportive measures were discussed with the patient and they voiced understanding discharge instructions and agrees to treatment plan. Return precautions reviewed Differential Diagnosis Differential diagnosis: Likely upper respiratory infection, otitis media, sinusitis, viral infection, bronchitis, influenza, pharyngitis and other (COVID) Discharge Plan Discharge Clinical Impression: Acute bacterial rhinosinusitis Patient Disposition: Home, Self-Care Condition: Stable Instructions: Antibiotic Form, Rhinosinusitis (ED) Additional Instructions: Take prescription medications only as prescribed-doxycycline, prednisone, and Tessalon Perles Increase fluids and stay well hydrated Tylenol/motrin for pain/fever Flonase and OTC antihistamines as directed Vicks vapor rub to open sinuses Sinus rinses for congestion Cepacol spray, cough drops, throat lozenges, warm tea with honey/lemon, gargle salt water to soothe throat BRAT diet for diarrhea Clear liquids x 24 hours then advance as tolerated for nausea/vomiting Go to the ED if you develop a worsening in your condition- high fever not controlled by Tylenol or Motrin, dehydration, weakness, lethargy, shortness of breath, or chest pain. Follow up with your PCP in 3-5 days if symptoms persist. Prescriptions: New prednisone 20 mg tablet 40 mg PO DAILY 5 Days Qty: 10 0RF doxycycline monohydrate 100 mg capsule 100 mg PO BID 10 Days Qty: 20 0RF benzonatate 200 mg capsule 200 mg PO TID 7 Days Qty: 21 0RF No Action gabapentin 100 mg capsule 100 mg PO TID Qty: 90 2RF pravastatin 20 mg tablet See Rx Instructions .ROUTE .COMPLEX Qty: 90 1RF Dose Instruction: TAKE 1 TABLET BY MOUTH ONCE DAILY Rx Instructions: TAKE 1 TABLET BY MOUTH ONCE DAILY sildenafil [Viagra] 100 mg tablet 100 mg PO DAILY PRN (Reason: sexual activity) Qty: 4 2RF Rx Instructions: administer 30 minutes to 4 hours before activity nabumetone 500 mg tablet See Rx Instructions .ROUTE .COMPLEX Qty: 120 2RF Dose Instruction: Take 1 tablet by mouth twice daily Rx Instructions: Take 1 tablet by mouth twice daily levothyroxine 125 mcg tablet 125 mcg PO DAILY Qty: 30 2RF pantoprazole 40 mg tablet,delayed release (DR/EC) See Rx Instructions .ROUTE .COMPLEX Qty: 90 2RF Dose Instruction: TAKE 1 TABLET BY MOUTH ONCE DAILY IN THE MORNING Rx Instructions: TAKE 1 TABLET BY MOUTH ONCE DAILY IN THE MORNING Follow-up/Referrals: Anastasiya,DOMINIC Del Cid [Primary Care Provider] - Time of Disposition: 10:41 Quality NIHSS Nursing Documentation ED NIHSS nursing documentation: reviewed/agree
[2024-09-22 10:21] VITALS: BP 124/73; PULSE 73; RESP 15; TEMP 36.3; O2SAT 97
== END 2024-09-22 10:45 | disposition home or self-care (01) ==
PROVIDERS: Emergency Provider Nurse Practitioner Family; PCP Physician Assistant
DX: J01.90 Acute sinusitis, unspecified (principal); B96.89 Other specified bacterial agents as the cause of diseases classified elsewhere
CPT/HCPCS: 99213; G0463

== ENCOUNTER 2024-10-29 10:35 | Emergency (ER) | payer BC, MEDICARE, SELFPAY ==
--- NOTE | ~2024-10-29 | XR_ITS ---
EXAMINATION: XR chest 2V DATE: 10/29/2024 12:03 INDICATION: Decreased breath sounds in left lung lower lobe. TECHNIQUE: Frontal and lateral views of the chest were obtained. COMPARISON: Chest single view 08/02/2023, CT abdomen and pelvis 06/15/2024 FINDINGS: There is chronic elevation of left hemidiaphragm. There is mild atelectasis at left lung ba se. Calcified bilateral lung nodules are consistent with old granulomatous disease. No pleural effusi on or pneumothorax. The heart size is normal. IMPRESSION: 1. Chronic elevation of left hemidiaphragm with mild atelectasis at left lung base. Reviewed, dictated and finalized at location A. [employer] IMPRESSION: 1. Chronic elevation of left hemidiaphragm with mild atelectasis at left lung b ase.
--- NOTE | 2024-10-29 10:38 | ED_ITS ---
HPI - URI/Sore Throat General Chief Complaint: Upper Respiratory Infection Stated Complaint: cough,sneezing,runny eyes. +COVID home test Time Seen by Provider: 10/29/24 10:37 Source: patient Mode of arrival: ambulatory Limitations: no limitations History of Present Illness HPI Narrative: Patient is a 79-year-old male who presents with cough, sneezing, runny eyes. Patient tested positive for COVID on Saturday. Denies any fever, chills, nausea, vomiting, diarrhea. Patient has been taking NyQuil. Related Data Allergies Allergy/AdvReac Type Severity Reaction Status Date / Time Penicillins Allergy Unknown Rash Verified 10/29/24 10:45 Review of Systems Review of Systems: All systems reviewed & are unremarkable except as noted in HPI and below Constitutional: Constitutional: Denies body ache(s), Denies chills, Denies fatigue, Denies fever(s), Denies headache(s), Denies malaise and Denies weakness Eyes: Eyes: Denies blurry vision, Reports itchy eyes and Denies loss of vision ENT: Denies otalgia, Denies headache(s), Reports nasal congestion, Reports nasal discharge, Denies sinus pain and Denies sore throat Cardiovascular: Cardiovascular: Denies chest pain, Denies irregular heart rhythm and Denies dyspnea Respiratory: Respiratory: Reports cough and Denies dyspnea Gastrointestinal: Gastrointestinal: Denies abdominal pain, Denies diarrhea, Denies nausea and Denies vomiting Musculoskeletal: Musculoskeletal: Denies back pain, Denies myalgias and Denies arthralgias Integumentary/Breasts: Skin/Breast: Denies pruritus and Denies rash Neurologic: Denies headache(s), Denies loss of vision and Denies weakness Psychiatric: Psychiatric: Reports no additional psychiatric complaints Endocrine: Endocrine: Denies fatigue Allergic/Immunologic: Allergic/Immunologic: Denies itchy eyes PMFSH Past Medical History Medical History Overweight Right anterior shoulder pain Erectile dysfunction History of malignant neoplasm of tonsil History of radiation therapy History of throat cancer Family History Family History Father Family history of coronary artery disease Mother Family history of coronary artery disease Sibling Family history of coronary artery disease Other Family history of cardiovascular disease Family history of malignant neoplasm Hypertension Social History Social History Smoking status: Never smoker Second hand tobacco smoke exposure: No Alcohol intake: never Substance use: never Substance use type: does not use Do You Feel Safe in your Home?: Yes Lack of Transportation: No Lack of Food: Never True Current Housing: I Have Housing Concerned About Future Housing: No Difficulty Paying Gas/Electric Bills: No Difficulty Paying for Meds: No Currently Unemployed: No Education: High School Diploma/GED Difficulty w/ Childcare or Family Care: No Living arrangements: with family Occupation/Education: retired Gender identity (if verbalized by the patient): Male Sexual Orientation (if Verbalized by the Patient): Straight or Heterosexual Comments At time of signature, agree with nursing past medical, surgical, social and family history. There is no relevant family history pertinent to the presenting complaint. Exam Const: General: cooperative, healthy appearing, comfortable, no acute distress and well nourished Nutritional Appearance: well nourished Orientation/consciousness: patient oriented x3 Limitations: no limitations HENMT: Head: normal to inspection, normocephalic and atraumatic Ears: hearing grossly normal bilaterally, external ears normal, TM's normal bilaterally, EAC's normal and no periauricular adenopathy Face/Nose/Sinus: Normal external nose present, Abnormal mucous membranes and turbinates present erythematous bilateral and diffuse, normal facial exam, sinuses nontender and face symmetric Face and sinus: normal facial exam, sinuses nontender and face symmetric Mouth: Yes Normal oral and palatal mucosa present, Yes lip normal, Yes tongue normal, Yes Normal salivary glands and ducts present, Yes oropharynx normal and Yes moist mucous membranes Teeth and gingiva: dentition normal Throat: posterior oropharynx normal, tonsils normal and uvula midline Eyes: General: appearance normal, both eyes and all related structures Alignment and Position: alignment normal and position normal Periorbital: periorbital findings normal Eyelids: eyelids normal Pupils: Equal, round and reactive pupils present Neck: Neck: normal visual inspection, full ROM, no lymphadenopathy and supple Chest: Chest palpation & inspection: normal inspection of the chest and normal palpation of entire chest wall Resp: Effort & Inspection: normal respiratory effort and able to speak in complete sentences Auscultation: no crackles, no rales, no rhonchi, no wheezes and diminished lung sounds on the left in the lower lung inman Cardio: Rate: regular rate Rhythm: regular rhythm Heart sounds: S1 normal heart sound present and S2 normal heart sound present GI: Inspection: normal to inspection Skin: General skin exam: normal color and no rashes or lesions noted Neuro: General: patient oriented x3 and moves all extremities Cranial nerves: Yes Equal, round and reactive pupils present Speech: normal speech Gait exam (Neuro): Normal gait present Extrem: General: normal to inspection, full ROM and no edema Psych: Appearance: grossly normal and well kempt Mental Status: mental status grossly normal Speech and movement: Normal speech and movement present Affect: normal affect Attitude: cooperative Thought process: Normal thought process present Course Course Emergency Course: Discharge instructions reviewed with patient, as well as provided in writing per nursing staff. The instructions also include specific and strict return/GO TO THE ER as well as f/u information. All questions have been answered, and the patient deny any further questions with discharge and discharge plan. Portions of this record may have been created with voice recognition software Level of Care: Express Care Visit Vital Signs Vital signs: Reviewed MDM - URI/Sore Throat MDM Narrative Medical decision making narrative: Pt well hydrated appearing, in no respiratory distress, hemodynamically stable. Recommend supportive care. The patient is stable at time of discharge the clinical impression was discussed and the patient was given the opportunity to ask questions, which were addressed as completely as possible given the information available at present. Anticipatory guidance and return to care precautions were discussed and the importance of primary care follow-up was stressed and encouraged. The patient voiced understanding of the plan, indications to return, and the need for follow-up. Differential diagnosis considered: Leavitt virus, strep pharyngitis, allergic rhinitis, upper respiratory tract infection, sinusitis, rhinosinusitis, nasopharyngitis. viral pharyngitis, otitis media, otitis externa, otitis effusion, foreign body, cerumen impaction, viral syndrome, and influenza.? Exam findings show no acute concerns or changes; patient is non-toxic appearing and is in no distress.? Patient is appropriate for outpatient treatment and follow- up.? Medical Records Attestation: I reviewed the patient's medical records. Imaging Data Radiologist's impression: EXAMINATION: XR chest 2V DATE: 10/29/2024 12:03 INDICATION: Decreased breath sounds in left lung lower lobe. TECHNIQUE: Frontal and lateral views of the chest were obtained. COMPARISON: Chest single view 08/02/2023, CT abdomen and pelvis 06/15/2024 FINDINGS: There is chronic elevation of left hemidiaphragm. There is mild atelectasis at left lung base. Calcified bilateral lung nodules are consistent with old granulomatous disease. No pleural effusion or pneumothorax. The heart size is normal. IMPRESSION: 1. Chronic elevation of left hemidiaphragm with mild atelectasis at left lung base. Discharge Plan Discharge Clinical Impression: COVID Patient Disposition: Home, Self-Care Condition: Stable Instructions: COVID-19 (Coronavirus Disease 2019) (ED) Additional Instructions: The following recommendations have been made by the CDC and local Health Departments, regarding COVID-19: -wear a mask for 5 days, as long as your fever free for 24 hours you could return to work -Majority of mild to moderate cases can be treated at home, without hospitalization or prescription medications You do not need a negative test result to return to work/school, assuming the above recommendations have been met and you are not symptomatic. Treating symptoms for mild to moderate cases may include: -Alternate Tylenol and Motrin per package directions for fever or pain. -Antihistamine medication such as Benadryl/Zyrtec at night and Claritin/Cherie during the day can help improve symptoms. -Use Flonase twice a day for 5 days then daily to help reduce the inflammation and dry up your sinuses. -You can also use Coricidin for hypertension patients. Be sure to drink plenty of water with these medications at least 8 ounces with every dose and it is important to drink 8 to 10 glasses of water per day. Water is a natural decongestant Take Motrin alternating with Tylenol for pain and fever alternating every 3 hours. 8 AM: Tylenol 11 AM: Ibuprofen 2 PM: Tylenol 5 PM: Ibuprofen 8 PM: Tylenol 11 PM: Ibuprofen 2 AM: Tylenol 5 AM: Ibuprofen Common Adult Symptoms: Fever/chills Cough Shortness of breath Fatigue, muscle aches Headache Loss of taste/smell Sore throat, congestion, runny nose GI symptoms (nausea, vomiting, diarrhea) Common Pediatric Symptoms Cough Fever GI symptoms (diarrhea, upset stomach, nausea, vomiting) Symptoms may differ in severity however, most cases do not require hospitalization. WHEN TO SEEK ER EVALUATION/TREATMENT: Severe/persistent shortness of breath or difficulty breathing Elevated, persistent fevers without resolution with fever-reducing medications Chest pain Extreme fatigue/lethargy Complications of pre-existing disease Your blood pressure was elevated above 120/80 today at Urgent Care. This puts you above the threshold for follow up visit with a primary care provider. High blood pressure does not usually cause any symptoms, however it may lead to kidney failure, stroke, heart disease just to name a few if untreated . Many people are anxious when seeing a provider or nurse. As a result, you are not diagnosed with hypertension at this time unless your blood pressure is persistently high at two office visits at least one week apart. Some things that can help lower blood pressure are lifestyle modifications, such as light exercise, decreased salt in diet, and weight loss. It is important to follow up with a PCP about this within 1 week. Patient Language: Maori Prescriptions: New benzonatate 100 mg capsule 100 mg PO BID PRN (Reason: cough) Qty: 14 0RF No Action gabapentin 100 mg capsule 100 mg PO TID Qty: 90 2RF pravastatin 20 mg tablet See Rx Instructions .ROUTE .COMPLEX Qty: 90 1RF Dose Instruction: TAKE 1 TABLET BY MOUTH ONCE DAILY Rx Instructions: TAKE 1 TABLET BY MOUTH ONCE DAILY sildenafil [Viagra] 100 mg tablet 100 mg PO DAILY PRN (Reason: sexual activity) Qty: 4 2RF Rx Instructions: administer 30 minutes to 4 hours before activity nabumetone 500 mg tablet See Rx Instructions .ROUTE .COMPLEX Qty: 120 2RF Dose Instruction: Take 1 tablet by mouth twice daily Rx Instructions: Take 1 tablet by mouth twice daily levothyroxine 125 mcg tablet 125 mcg PO DAILY Qty: 30 2RF pantoprazole 40 mg tablet,delayed release (DR/EC) See Rx Instructions .ROUTE .COMPLEX Qty: 90 2RF Dose Instruction: TAKE 1 TABLET BY MOUTH ONCE DAILY IN THE MORNING Rx Instructions: TAKE 1 TABLET BY MOUTH ONCE DAILY IN THE MORNING Follow-up/Referrals: Anastasiya,DOMINIC Del Cid [Primary Care Provider] - 3 Days Time of Disposition: 12:08
[2024-10-29 10:47] VITALS: BP 150/79; PULSE 59; RESP 16; TEMP 35.6; O2SAT 100
== END 2024-10-29 12:12 | disposition home or self-care (01) ==
PROVIDERS: Emergency Provider Nurse Practitioner Family; PCP Physician Assistant
DX: U07.1 COVID-19 (principal); Z85.818 Personal history of malignant neoplasm of other sites of lip, oral cavity, and pharynx; Z92.3 Personal history of irradiation
CPT/HCPCS: 71046; 99213; G0463

== ENCOUNTER 2025-03-23 09:00 | Emergency (ER) | payer BC, MEDICARE, SELFPAY ==
[2025-03-23 09:20] VITALS: BP 130/73; PULSE 64; RESP 14; TEMP 36.6; O2SAT 97
--- NOTE | 2025-03-23 09:20 | ED.URI ---
HPI - URI/Sore Throat General Chief Complaint: Upper Respiratory Infection Stated Complaint: COUGH/SNEEZING Source: patient and RN notes reviewed Mode of arrival: ambulatory Limitations: no limitations History of Present Illness HPI Narrative: 71-year-old male presented for complaint of cough, nasal congestion and drainage. Onset 1 month. Sore throat started yesterday. Denies shortness of breath, wheezing nausea vomiting, diarrhea, fevers or chills. Taking Mucinex. with similar symptoms. MD elicited complaint: cough Related Data Home Medications ?Medication ?Instructions ?Recorded ?Confirmed ?Last Taken ?Type losartan 25 mg tablet 25 mg PO DAILY 03/23/25 Unknown History Allergies Allergy/AdvReac Type Severity Reaction Status Date / Time Penicillins Allergy Unknown Rash Verified 03/23/25 09:27 Review of Systems Review of Systems: per [facility] Past Medical History Medical History Overweight Right anterior shoulder pain Erectile dysfunction History of malignant neoplasm of tonsil History of radiation therapy History of throat cancer Family History Family History Father Family history of coronary artery disease Mother Family history of coronary artery disease Sibling Family history of coronary artery disease Other Family history of cardiovascular disease Family history of malignant neoplasm Hypertension Social History Social History Smoking status: Never smoker Second hand tobacco smoke exposure: No Alcohol intake: never Substance use: never Substance use type: does not use Do You Feel Safe in your Home?: Yes Lack of Transportation: No Lack of Food: Never True Current Housing: I Have Housing Concerned About Future Housing: No Difficulty Paying Gas/Electric Bills: No Difficulty Paying for Meds: No Currently Unemployed: No Education: High School Diploma/GED Difficulty w/ Childcare or Family Care: No Living arrangements: with family Occupation/Education: retired Gender identity (if verbalized by the patient): Male Sexual Orientation (if Verbalized by the Patient): Straight or Heterosexual Exam Narrative: GENERAL: well-appearing, nontoxic no acute distress. EYES: conjunctivae clear ENT: Mucous membranes moist. TMs pearly sevilla with dull light reflex bilaterally; no tragal tenderness. Oropharynx not erythematous without lesions or exudate, no drooling, no hoarseness, no trismus, uvula midline. No tripod positioning, muffled voice, soft palate or pharyngeal wall bulging NECK: Supple. No lymphadenopathy CHEST: Clear to auscultation, diminished left base. No wheezing, rhonchi, rales, or stridor. No respiratory distress, speaks in full sentences. HEART: Regular rate and rhythm. No murmur heard. SKIN: Warm, dry, no rash. NEURO: Alert and oriented x3. PSYCH: Normal mood and affect Course Course Emergency Course: Patient is aware of diagnosis, understands and agrees to treatment plan. Anticipatory guidance given. Patient agrees to follow-up as directed and is aware of reasons to seek care at the emergency department. Portions of this record may have been created with voice recognition software Level of Care: Express Care Visit Vital Signs Vital signs: Vital Signs Temperature 98 F 03/23/25 09:20 Pulse Rate 64 03/23/25 09:20 Respiratory Rate 14 03/23/25 09:20 Blood Pressure 130/73 03/23/25 09:20 Pulse Oximetry 97 03/23/25 09:20 Oxygen Delivery Room Air 03/23/25 09:20 Temperature 98 F 03/23/25 09:20 Pulse Rate 64 03/23/25 09:20 Respiratory Rate 14 03/23/25 09:20 Blood Pressure 130/73 03/23/25 09:20 Pulse Oximetry 97 03/23/25 09:20 Oxygen Delivery Room Air 03/23/25 09:20 reviewed MDM - URI/Sore Throat MDM Narrative Medical decision making narrative: Discussed physical exam findings and reviewed RX. Advised supportive measures and signs/symptoms to go to the ER. Pt is appropriate for outpt treatment and f/u. Differential Diagnosis Differential diagnosis: Likely upper respiratory infection, sinusitis, viral infection and bronchitis Discharge Plan Discharge Clinical Impression: Bronchitis Patient Disposition: Home Condition: Stable Instructions: Antibiotic Form, Acute Bronchitis (ED) Additional Instructions: Acute bronchitis can be contagious because it is usually caused by infection with a virus or bacteria. Take medication as directed Recommend Flonase spray and Zyrtec (or Claritin/Cherie) over the counter Cough syrup may cause drowsiness; avoid driving or take it at night time. Coricidin HBP if you have hypertension Tylenol every 8 hours as needed for pain Symptomatic treatment includes: rest, fluids, and increase humidity of the air at home. Follow up with your primary care provider as needed in 1 week Go to the ER for worsening symptoms or concerns Patient Language: Chadian Prescriptions: New benzonatate 200 mg capsule 200 mg PO TID PRN (Reason: cough) Qty: 20 0RF methylprednisolone [Medrol (Wes)] 4 mg tablets,dose pack See Rx Instructions .ROUTE .COMPLEX Qty: 21 0RF Rx Instructions: orally per package directions doxycycline hyclate 100 mg tablet 100 mg PO BID 7 Days Qty: 14 0RF No Action losartan 25 mg tablet 25 mg PO DAILY benzonatate 100 mg capsule 100 mg PO BID PRN (Reason: cough) Qty: 14 0RF gabapentin 100 mg capsule 100 mg PO TID Qty: 90 2RF pravastatin 20 mg tablet See Rx Instructions .ROUTE .COMPLEX Qty: 90 1RF Dose Instruction: TAKE 1 TABLET BY MOUTH ONCE DAILY Rx Instructions: TAKE 1 TABLET BY MOUTH ONCE DAILY nabumetone 500 mg tablet See Rx Instructions .ROUTE .COMPLEX Qty: 120 2RF Dose Instruction: Take 1 tablet by mouth twice daily Rx Instructions: Take 1 tablet by mouth twice daily levothyroxine 125 mcg tablet 125 mcg PO DAILY Qty: 30 2RF pantoprazole 40 mg tablet,delayed release (DR/EC) See Rx Instructions .ROUTE .COMPLEX Qty: 90 0RF Dose Instruction: TAKE 1 TABLET BY MOUTH ONCE DAILY IN THE MORNING Rx Instructions: TAKE 1 TABLET BY MOUTH ONCE DAILY IN THE MORNING Follow-up/Referrals: Anastasiya,DOMINIC Del Cid [Primary Care Provider] -
== END 2025-03-23 09:50 | disposition home or self-care (01) ==
PROVIDERS: Emergency Provider Nurse Practitioner Family; PCP Physician Assistant
DX: J40 Bronchitis, not specified as acute or chronic (principal); Z85.89 Personal history of malignant neoplasm of other organs and systems; Z92.3 Personal history of irradiation
CPT/HCPCS: 99213; G0463